=== PATIENT | female | born 1975 | race Caucasian/White ===

== ENCOUNTER 2017-09-13 07:49 | Day surgery (SDC) | payer BC ==
[~2017-09-13] VITALS: Ht 157.5 cm; Wt 81.6 kg
[~2017-09-13 07:49] MED LIST: CEFAZOLIN 1 GM IVPB PREMIX 50 ML IV ONE
[2017-09-13] MEDS ORDERED: fentaNYL CITRATE/PF 100 MCG/2 ML AMP IVP PRN ×2 (08:45)
[2017-09-13] MEDS ORDERED: ONDANSETRON HCL 4 MG/2 ML VIAL IVP PRN (08:45)
[2017-09-13] MEDS ORDERED: KETOROLAC TROMETHAMINE 30 MG VIAL IVP PRN (08:45)
[2017-09-13] MEDS ORDERED: OXYCODONE/ACETAMINOPHEN 5-325 TABLET PO PRN ×2 (15:45)
[2017-09-13] MEDS ORDERED: GLYCOPYRROLATE 0.2 MG/ML VIAL ONE (15:50)
[2017-09-13] MEDS ORDERED: fentaNYL CITRATE/PF 100 MCG/2 ML AMP ONE ×2 (15:50→16:09)
[2017-09-13] MEDS ORDERED: PHENYLEPHRINE HCL 10 MG/ML VIAL (NEOSYNEPHRINE) ONE (15:50)
[2017-09-13] MEDS ORDERED: CEFAZOLIN 1 GM IVPB PREMIX 50 ML IV ONE (15:50)
[2017-09-13] MEDS ORDERED: MIDAZOLAM HCL 5 MG/ML VIAL (VERSED) IV ONE (15:50)
[2017-09-13] MEDS ORDERED: SEVOFLURANE 15 MIN GAS INH ONE (15:50)
[2017-09-13] MEDS ORDERED: LR 1,000 ML IV.SOLN IV ONE (15:50)
[2017-09-13] MEDS ORDERED: PROPOFOL 200MG/ 20ML VIAL (DIPRIVAN) IV ONE (15:50)
[2017-09-13] MEDS ORDERED: VASOPRESSIN 20 UNITS/ML VIAL IV ONE (15:50)
[2017-09-13] MEDS ORDERED: KETOROLAC TROMETHAMINE 30 MG VIAL ONE ×3 (15:50→17:50)
[2017-09-13] MEDS ORDERED: NS IRRIG SOLN 1000 ML IR ONE (15:50)
[2017-09-13] MEDS ORDERED: NS 1000 ML BAG IV ONE (15:50)
[2017-09-13] MEDS ORDERED: BUPIVACAINE /EPINEPHRINE/PF 0.5% 30 ML VIAL INJ ONE (15:50)
[2017-09-13] MEDS ORDERED: ROCURONIUM BROMIDE 10 MG/ML (ZEMURON) ONE (15:50)
[2017-09-13] MEDS ORDERED: ONDANSETRON HCL 4 MG/2 ML VIAL ONE (16:37)
[2017-09-13] MEDS ORDERED: KETOROLAC TROMETHAMINE 30 MG VIAL IVP ONE (18:00)
[2017-09-13 18:28] VITALS: BP_SYST 111
== END 2017-09-13 18:40 | disposition home or self-care (01) ==
LOC: SMU 07:49 → SDS 07:49 → EDSEX 10:45 → SDS 18:40
PROVIDERS: ATTEND Specialist
DX: D25.9 Leiomyoma of uterus, unspecified (principal); E03.9 Hypothyroidism, unspecified; F41.9 Anxiety disorder, unspecified; F32.9 Major depressive disorder, single episode, unspecified; Z79.899 Other long term (current) drug therapy
CPT/HCPCS: 58545; 88305; J0690; J1885; J2250; J2370; J2405; J2704; J3010; J3490 ×3; J7030; J7120; E0190